=== PATIENT | female | born 1935 | race Caucasian/White ===

== ENCOUNTER 2022-07-20 21:28 | Emergency (ER) | payer MEDICARE, BC ==
[2022-07-20] MEDS ORDERED: Sodium Chloride 0.9% 10 ML Syringe FLUSH PRN (21:40)
[2022-07-20] MEDS ORDERED: Morphine 2 MG/ML SYRINGE IVPUSH STA (22:18)
[2022-07-20] MEDS ORDERED: Ondansetron 4 MG/2 ML SDV IVPUSH ONE (22:18)
[2022-07-20 22:20] LABS: ESTIMATED GFR 62 mL/min (>60)
[2022-07-20 22:29] LABS: BASE EXCESS VENOUS,POC 2 mmol/L (-2 - 3+); PCO2 VENOUS,POC 44 mmHg (41-51)
[2022-07-20] MEDS ORDERED: Iopamidol 755 Mg/ML 75 ML Bottle IV ONE (23:08)
[2022-07-21] MEDS ORDERED: Pantoprazole 40 MG Vial IVPUSH STA (00:56)
== END 2022-07-21 01:45 | disposition home or self-care (01) ==
LOC: FB.ED 21:28
DX: K29.70 Gastritis, unspecified, without bleeding (principal); K21.9 Gastro-esophageal reflux disease without esophagitis; E78.00 Pure hypercholesterolemia, unspecified; E11.22 Type 2 diabetes mellitus with diabetic chronic kidney disease; I12.9 Hypertensive chronic kidney disease with stage 1 through stage 4 chronic kidney disease, or unspecified chronic kidney disease; N18.30 Chronic kidney disease, stage 3 unspecified; Z88.8 Allergy status to other drugs, medicaments and biological substances; Z86.16 Personal history of COVID-19; Z79.899 Other long term (current) drug therapy
CPT/HCPCS: 36415; 71045; 74177; 80053; 82150; 83690; 83880; 84484; 85025; 93005; 93010; 96374; 96375; 99282; 99284; C9113; J2270; J2405; Q9967